=== PATIENT | male | born 1970 | race Caucasian/White ===

== ENCOUNTER 2019-07-29 21:09 | Emergency (ER) | payer OTHER, SELFPAY ==
[2019-07-29 21:15] VITALS: BP 149/94; PULSE 70; RESP 18; TEMP 36.6; O2SAT 96; BMI 29.2
--- NOTE | 2019-07-29 21:43 | PC.NURSE ---
pt agreeable to changing into disposable clothes. and daughter at bedside.
[2019-07-29 22:00] LABS: Add Manual Diff / Slide Review NO; Basophils Absolute Auto 0 /uL (0-100); Basophils Percent Auto 0.5 % (0-2); Eosinophils Absolute Auto 200 /uL (0-450); Eosinophils Percent Auto 2.8 % (2-4); Hematocrit 48.9 % (41-53); Hemoglobin 16.8 g/dL (13.5-17.5); Lymphocytes Absolute Auto 3500 /uL (1100-4500); Lymphocytes Percent Auto 44.5 % (25-40); Mean Corpuscular HGB Conc 34.4 % (30-36); Mean Corpuscular Hemoglobin 31.9 PG (26-34); Mean Corpuscular Volume 92.8 fL (80-100); Monocytes Absolute Auto 400 /uL (0-900); Monocytes Percent Auto 4.8 % (3-14); Neutrophils Absolute Auto 3700 /uL (1500-7000); Neutrophils Percent Auto 47.4 % (50-75); Platelet Count 320 X10^3/uL (150-400); Red Blood Cell Count 5.27 X10^6/uL (4.5-5.9); Red Cell Distribution Width 13.1 % (11.6-14.8); White Blood Cell Count 7.8 X10^3/uL (4.5-11.0)
[2019-07-29 22:10] LABS: Acetaminophen < 10 ug/mL (10-30); Alanine Aminotransferase 34 IU/L (21-72); Albumin 4.7 g/dL (3.5-5.0); Albumin Globulin Ratio 1.3 (1.0-2.8); Alkaline Phosphatase 86 U/L (38-126); Aspartate Aminotransferase 44 IU/L (17-59); Bilirubin Total 0.4 mg/dL (0.2-1.3); Blood Urea Nitrogen 13 mg/dL (9-20); Carbon Dioxide 27 mmol/L (22-32); Chloride 107 mmol/L (98-107); Estimated Glomerular Filt Rate > 60.0 mL/min (>60); Ethanol (ETOH) 253 mg/dL; Globulin 3.5 g/dL (1.7-4.1); Glucose 121 mg/dL (70-100); HEMOLYSIS < 15 (0-50); Lipase 343 U/L (23-300); Potassium 4.5 mmol/L (3.4-5.1); Salicylate < 1.0 mg/dL (<20); Sodium 146 mmol/L (137-145); Total Protein 8.2 g/dL (6.3-8.2)
--- NOTE | 2019-07-29 22:11 | PC.NURSE ---
dr manrique at bedside
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
[2019-07-29 22:21] LABS: Troponin I < 0.012 ng/mL (0.01-0.034)
[2019-07-29 22:22] LABS: Urine Amphetamines Negative (Negative); Urine Barbiturates Negative (Negative); Urine Benzodiazepines Negative (Negative); Urine Cocaine Negative (Negative); Urine MDMA Negative (Negative); Urine Methadone Negative (Negative); Urine Methamphetamines Negative (Negative); Urine Morphine/Opi cutoff 2000 Negative (Negative); Urine Oxycodone Negative (Negative); Urine Phencyclidine Negative (Negative); Urine Tetrahydrocannabinol Negative (Negative); Urine Tricyclic Antidepressant Negative (Negative)
[2019-07-29] MEDS: TRAZODONE 50 MG TABLET PO (22:44)
--- NOTE | 2019-07-29 23:01 | PC.NURSE ---
Pt is lying down. Two family members are in room. Lights are off.
--- NOTE | 2019-07-29 23:30 | PC.NURSE ---
Pt is quietly talking to . Remains calm in bed.
--- NOTE | 2019-07-29 23:47 | PC.NURSE ---
Pt stated that he wanted to check out and go home; stated that he wanted and daughter to not have to stay all night. Requested breathing treatment and used urinal. Declined warm blanket. Alert and oriented to room.
--- NOTE | 2019-07-30 00:02 | PC.NURSE ---
Pt in bed resting, resting and calm. in room, lights off.
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
--- NOTE | 2019-07-30 00:31 | PC.NURSE ---
Calm, talking to .
--- NOTE | 2019-07-30 00:47 | PC.NURSE ---
Pt wants to go home. Calmed down and lying down on back. continues to be at side. Light still off.
--- NOTE | 2019-07-30 01:46 | PC.NURSE ---
Pt is calm in bed. left to get food for him.
--- NOTE | 2019-07-30 02:02 | PC.NURSE ---
Pt still asleep.
[2019-07-30 02:13] VITALS: BP 126/81; PULSE 63; RESP 14; O2SAT 95
--- NOTE | 2019-07-30 02:16 | PC.NURSE ---
Patient's brought food in and he woke up. Did not request to go home. Asked for water and returned to lying down. in room. Lights off.
--- NOTE | 2019-07-30 02:56 | PC.NURSE ---
Pt is sleeping.
--- NOTE | 2019-07-30 03:17 | PC.NURSE ---
Pt is sleeping.
--- NOTE | 2019-07-30 04:20 | PC.NURSE ---
Patient sleeping. in room.
--- NOTE | 2019-07-30 04:30 | PC.NURSE ---
Pt asleep, some shifting observed. in room.
[2019-07-30 05:15] VITALS: BP 117/75; PULSE 89; RESP 12; O2SAT 94
[2019-07-30 05:32] LABS: Ethanol (ETOH) 97 mg/dL
[2019-07-30] MEDS: ONDANSETRON 4 MG ODT SL (05:59)
--- NOTE | 2019-07-30 06:13 | PC.NURSE ---
Pt complained of nausea. Stated that he was sure it was from all the alcohol.
--- NOTE | 2019-07-30 06:17 | PC.NURSE ---
Pt is calm and lying down. Declined more water or blanket. Awake and resting. in room.
--- NOTE | 2019-07-30 06:47 | PC.NURSE ---
Pt requested to vomit in the bathroom. Escorted to bathroom with water. He vomited and felt better.
--- NOTE | 2019-07-30 06:53 | PC.NURSE ---
He denies any suicidal or homicidal thoughts now.He will go home with his and all firearms will be removed from his home.He is alert and oriented to place,person and situation.
== END 2019-07-30 06:50 | disposition home or self-care (01) ==
PROVIDERS: Emergency Provider Emergency Medicine
DX: R45.851 Suicidal ideations (principal); F43.10 Post-traumatic stress disorder, unspecified; F10.929 Alcohol use, unspecified with intoxication, unspecified
CPT/HCPCS: 36415; 80053; 80305; 80320; 80329; 83690; 84484; 85025; 93005; 99284; 99285; G0480

== ENCOUNTER 2020-04-14 09:16 | Emergency (ER) | payer OTHER, SELFPAY ==
[2020-04-14 09:20] VITALS: BP 137/84; PULSE 94; RESP 20; TEMP 36.6; O2SAT 95; BMI 27.8
--- NOTE | 2020-04-14 09:40 | DI.RAD.S_ITS ---
PROCEDURE: XR CHEST 1V INDICATIONS: SOB TECHNIQUE: One view of the chest was acquired. COMPARISON: None. FINDINGS: Surgical changes and devices: None. Lungs and pleura: Lungs are clear. No pleural effusions or pneumothorax. Mediastinum: Mediastinal contours appear normal. Heart size is normal. Bones and chest wall: No suspicious bony lesions. Overlying soft tissues appear unremarkable. IMPRESSION: No evidence acute pulmonary process. Dictated by: Michael Goff M.D. on 04/14/2020 at 9:23 Approved by: Michael Goff M.D. on 04/14/2020 at 9:24
[2020-04-14] MEDS: ALBUTEROL HFA 60 PUFF/8 GM INH INH (09:53)
[2020-04-14] MEDS: predniSONE 20 MG TABLET 40 MG PO (09:57)
[2020-04-14 10:30] VITALS: PULSE 68; RESP 20; O2SAT 96
[2020-04-14 11:19] VITALS: BP 131/74; PULSE 72; O2SAT 97
[2020-04-14 12:01] LABS: COVID19 -Nasal RAPID Negative (Negative)
--- NOTE | 2020-04-14 14:35 | ED_ITS ---
HPI - URI/Sore Throat General Chief Complaint: Upper Respiratory Symptoms Stated Complaint: cough/ lower resp gavino/ nauseu headache weakness Time Seen by Provider: 04/14/20 09:18 Source: patient Mode of arrival: Ambulatory Limitations: no limitations History of Present Illness HPI Narrative: 50-year-old male nonsmoker with history of lower respiratory illness presents with the chief complaint of trouble with breathing including wheezing, runny nose, nasal congestion for the past few days. He denies fever or chills. He denies any cough productive of sputum. He denies any nausea, vomiting or diarrhea. He denies chest pain or abdominal pain. He denies any dysuria, frequency or urgency. He does not have a rescue inhaler at home but has been using his Advair without much in the way of success. He does have history of seasonal allergies and questions whether something might be going to rocha Complaint: rhinorrhea and nasal congestion Onset (ago): day(s) Duration: constant Severity: moderate Relieving factors: nothing Exacerbating factors: nothing Description of mucous: clear Able to tolerate fluids by mouth: Yes Associated symptoms: shortness of breath Treatments prior to arrival: none Related Data Home Medications Medication Instructions Recorded Confirmed escitalopram oxalate 10 mg PO DAILY 07/29/19 07/29/19 fluticasone propion-salmeterol 1 inh INHALATION BID 07/29/19 07/29/19 [Advair Diskus] montelukast 10 mg PO QPM 07/29/19 07/29/19 Previous Rx's Medication Instructions Recorded lorazepam [Ativan] 1 mg PO QD-BID PRN #10 tab 07/30/19 ondansetron 4 mg PO Q6H PRN #14 tab 07/30/19 prednisone See Rx Instructions .ROUTE 04/14/20 .COMPLEX #30 tab Allergies Allergy/AdvReac Type Severity Reaction Status Date / Time No Known Drug Allergies Allergy Verified 04/14/20 09:33 Review of Systems Constitutional Constitutional: Denies chills, Denies fatigue, Denies fever(s), Denies frequent falls, Denies lethargy and Denies weakness Eyes Eyes: Denies change in vision, Denies eye discharge, Denies irritation and Denies loss of vision ENT Ears, Nose, Mouth, and Throat: Denies change in voice, Denies dizziness, Reports nasal congestion, Reports nasal discharge, Denies neck pain, Denies sore throat and Denies throat swelling Cardiovascular Cardiovascular: Denies chest pain, Denies irregular heart rhythm, Denies lightheadedness, Denies palpitations, Reports dyspnea, Denies dyspnea on exertion and Denies orthopnea Respiratory Respiratory: Denies cough, Reports dyspnea, Denies dyspnea on exertion and Reports wheezing Gastrointestinal Gastrointestinal: Denies abdominal pain, Denies change in bowel habits, Denies diarrhea, Denies nausea and Denies vomiting Genitourinary Genitourinary: Denies hematuria, Denies flank pain, Denies urinary incontinence and Denies urinary urgency Musculoskeletal Musculoskeletal: Denies back pain, Denies muscle weakness, Denies neck pain, Denies numbness and Denies tingling Integumentary/Breasts Skin/Breast: Denies pruritus, Denies erythema, Denies rash and Denies wounds Neurologic Neurologic: Denies behavioral changes, Denies confusion, Denies dizziness, Denies frequent falls, Denies loss of vision, Denies numbness, Denies tingling and Denies weakness Psychiatric Psychiatric: Denies anxiety, Denies behavioral changes, Denies confusion, Denies depression, Denies homicidal ideation and Denies suicidal ideation Endocrine Endocrine: Denies fatigue, Denies flushing and Denies palpitations Hematologic/Lymphatic Hematologic/Lymphatic: Denies easy bruising Allergic/Immunologic Allergic/Immunologic: Denies urticaria, Denies throat swelling and Reports wheezing Patient History Medical History Alcohol abuse (Acute) Depression (Acute) Insomnia (Acute) PTSD (post-traumatic stress disorder) (Acute) Surgical History No pertinent past surgical history (Acute) Social History Smoking Status: Never smoker Smoking Status: Never smoker alcohol intake frequency: 3 or more drinks per day Substance Use Type: does not use Exam Narrative Exam Narrative: GENERAL: [50] year old patient appears stated age. Well- nourished, well-developed patient, in mild distress. HEAD: Atraumatic. Normocephalic. EYES: Pupils equal round and reactive. Extraocular motions intact. No scleral icterus. No injection or drainage. ENT: Clear drainage. Nose without bleeding, purulent drainage. Throat without erythema, tonsillar hypertrophy or exudate, though there is some clear postnasal drip. Airway patent. NECK: Trachea midline. Non tender CARDIOVASCULAR: Regular rate and rhythm without murmurs, gallops, or rubs. RESPIRATORY: Moderate wheeze with inspiratory and expiratory involvement. No crackles. GASTROINTESTINAL: Abdomen soft, non-tender, nondistended. EXTREMITIES: No edema or joint tenderness. BACK: Nontender without deformity or crepitance. No flank tenderness. NEURO: AOx3. SKIN: No rash or erythema of visible areas Initial Vital Signs Initial Vital Signs: Vital Signs Temperature 97.9 F 04/14/20 09:20 Pulse Rate 94 H 04/14/20 09:20 Respiratory Rate 20 04/14/20 09:20 Blood Pressure 137/84 04/14/20 09:20 Pulse Oximetry 95 04/14/20 09:20 Course Course Course Narrative: patient shows definite improvement after above stated therap ies Orders Ordered: ED Orders 04/14/20 09:40 XR chest 1V Stat Discontinued Medications Albuterol (Ventolin Hfa) 2 puff INH NOW ONE Stop: 04/14/20 09:41 Last Admin: 04/14/20 09:53 Dose: 2 puff Documented by: BFOX Prednisone (Deltasone) 40 mg PO NOW ONE Stop: 04/14/20 09:41 Last Admin: 04/14/20 09:57 Dose: 40 mg Documented by: KBROTEM Vital Signs Vital signs: Vital Signs - 8 hr 04/14/20 09:20 04/14/20 10:30 04/14/20 11:19 Temperature 97.9 F Pulse Rate 94 H 68 72 Respiratory Rate 20 20 Blood Pressure 137/84 131/74 Pulse Oximetry 95 96 97 MDM - URI/Sore Throat Lab Data Labs: Lab Results 04/14/20 04/14/20 Range/Units 10:02 10:37 COVID-19 PCR Cancelled Negative Imaging Data Chest x-ray: Radiologist's Impression: Adam Koehler M 1970 [address] [address] XRay Report Signed Patient: Adam Koehler JMR#: [id number] : 1970Acct:[id number] Age/Sex: 50 / MDate of Service: 04/14/20 Loc: ED Accession Number: [id number] Procedure: XR chest 1V Ordering Provider: Jaspreet Bolaños D.O. PROCEDURE: XR CHEST 1V INDICATIONS: SOB TECHNIQUE: One view of the chest was acquired. COMPARISON: None. FINDINGS: Surgical changes and devices: None. Lungs and pleura: Lungs are clear. No pleural effusions or pneumothorax. Mediastinum: Mediastinal contours appear normal. Heart size is normal. Bones and chest wall: No suspicious bony lesions. Overlying soft tissues appear unremarkable. IMPRESSION: No evidence acute pulmonary process. Dictated by: Michael Goff M.D. on 04/14/2020 at 9:23 Discharge Plan Departure Patient Disposition: Home Clinical Impression: Allergy to environmental factors Asthma exacerbation Qualifiers: Asthma severity: moderate Asthma persistence: persistent Qualified Code(s): J45.41 - Moderate persistent asthma with (acute) exacerbation Discharge Date/Time: 04/14/20 11:20 Instructions: Asthma -- Adult Activity Restrictions/Additional Instructions: *You have been diagnosed with [asthma exacerbation, with environmental allergies] *What to do: *Take medications as directed *Follow up with your primary care provider in 2-3 days, call for an appointment. Let them know you were seen in the Emergency Department and that we ask that you be seen in follow up *Return to ER if you should have any new, worsening or concerning symptoms Prescriptions: New prednisone 10 mg tablet See Rx Instructions .ROUTE .COMPLEX Qty: 30 RF: 0 No Action escitalopram oxalate 10 mg Tablet 10 mg PO DAILY RF: 0 montelukast 10 mg Tablet 10 mg PO QPM RF: 0 fluticasone propion-salmeterol [Advair Diskus] 250-50 mcg/dose blister with device 1 inh INHALATION BID RF: 0 ondansetron 4 mg tablet,disintegrating 4 mg PO Q6H PRN (Reason: nausea and vomiting) Qty: 14 RF: 0 lorazepam [Ativan] 1 mg tablet 1 mg PO QD-BID PRN (Reason: alcohol withdrawal) Qty: 10 RF: 0 Referrals: Jessa Severino DO [Primary Care Provider] -
== END 2020-04-14 11:20 | disposition home or self-care (01) ==
PROVIDERS: Emergency Provider Emergency Medicine; PCP Family Medicine
DX: J45.41 Moderate persistent asthma with (acute) exacerbation (principal); J30.2 Other seasonal allergic rhinitis; R06.02 Shortness of breath; R05 Cough
CPT/HCPCS: 71045; 87635; 94150; 94640; 99283; 99284

== ENCOUNTER → 2020-08-10 08:20 | Outpatient (CLI) | payer OTHER, SELFPAY ==
[2020-08-12 18:27] LABS: COVID19 Sendout Not Detected (Not Detect)
== END ==
PROVIDERS: PCP Family Medicine; Visit Provider Nurse Practitioner
DX: Z11.59 Encounter for screening for other viral diseases (principal)
CPT/HCPCS: 87635

== ENCOUNTER 2020-08-13 08:08 | Day surgery (SDC) | payer OTHER, SELFPAY ==
--- NOTE | 2020-08-13 | PATH_ITS ---
[facility] Accession Number: [id number] . 01 Material submitted: . PART A: sigmoid colon - SIGMOID POLYP PART B: rectum - RECTAL POLYP . 02 Diagnosis: A. Sigmoid Colon, Polyp: Benign perineurioma. Negative for dysplasia or malignancy. . B. Rectum, Polyp: Hyperplastic polyp. [facility] 08/15/2020 1005 Local . 02 Electronically signed: . Miguel Villalobos MD, PhD, Pathologist NPI- [id number] . 01 Gross description: . A. Specimen A is received in formalin, labeled sigmoid polyp and consists of a 0.2 x 0.2 x 0.2 cm ambrocio fragment of soft tissue, which is entirely submitted in cassette A1. B. Specimen B is received in formalin, labeled rectal polyp and consists of four ambrocio fragments of soft tissue, measuring 0.6 x 0.5 x 0.2 cm in aggregate. The specimen is entirely submitted in cassette B1. ([id number]) /[facility] 08/14/2020 1717 Local . 02 Pathologist provided ICD-10: D12.5, K62.1 . 02 CPT . 464170, 634244 Performed at: 01 [facility] [address], [place], [place] [id number] MD Elvis Ochoa MD Phone: [phone] Performed at: 02 [facility] [address] [place], [place] [id number] MD Heydi Anderson MD Phone: [phone]
[2020-08-13 08:26] VITALS: BP 134/88; PULSE 87; RESP 14; TEMP 36.3; O2SAT 95; BMI 28.5
[2020-08-13] MEDS: LACTATED RINGERS 1,000 ML 200 ML IV (08:32)
--- NOTE | 2020-08-13 09:14 | PM.OP.ENDO ---
Operative Date/Time/Diagnoses Date of procedure: 08/13/20 Time of procedure: 09:14 Pre-op diagnosis: Screening colonoscopy Post-op diagnosis: same Procedure & Clinicians Study performed: Colonoscopy Same procedure as scheduled: Yes Indications: 50-year-old male no prior colonoscopy presents for routine screening Surgeon: Javad Maza Procedure Notes SCOAP/Timeout: Performed Procedure in detail: Patient placed in left lateral recumbent position. Time out was performed. Procedural sedation was administered with Versed and Fentanyl. Examination began with a thorough inspection of the perianal area there was no evidence of fissures, fistulae, external hemorrhoids or cutaneous malignancy. The colonoscopy scope was then placed into the rectum the the lumen was insufflated with air. The scope was carefully advanced forward. Ultimately the cecum was intubated and confirmed by identification of the ileocecal valve, the appendiceal orifice and the confluence of the taenia. The scope was then slowly withdrawn examining colon thoroughly in all directions. In the rectum the rectal columns were identified and retroflexion of the scope was performed for inspection of the distal rectum and anal canal. The colonoscopy was notable for the followin. Quality of the preparation-good 2. Less than 1 cm polyp the sigmoid colon removed with biopsy forceps and hemostasis observed 3. Less than 1 cm polyp in the mid rectum removed with biopsy forceps hemostasis observed 4. Sigmoid diverticulosis Scope withdrawal time: 9 Sedation minutes: 27 Findings: polyp Specimen(s): other (Rectal polyp, sigmoid polyp) Complications: none Impression: Diverticulosis, benign polyps Post-procedure Recommendations: Colonscopy in 5 years Disposition: same day surgery
--- NOTE | 2020-08-13 09:14 | PM.HP.1 ---
History of Present Illness History of Present Illness Date Patient Seen: 08/13/20 Time Patient Seen: 09:15 Chief complaint: SDC Narrative: The patient presents for colorectal sreening. They have never had any previous examination for such. No personal or family history of colon cancer. On further history denies any recent gastrointestinal symptoms. No nausea, vomiting, abdominal pain, loss of appetite, unexplained weight loss, change in bowel habits, diarrhea, constipation, melena, hematochezia, or bright red blood per rectum. Patient History Medical History Alcohol abuse (Acute) Depression (Acute) Insomnia (Acute) PTSD (post-traumatic stress disorder) (Acute) Surgical History No pertinent past surgical history (Acute) Family & Social History Social History: household members spouse Tobacco & Substance use: Smoking Status Never smoker alcohol intake frequency a few times a week Substance Use Type does not use Meds Home Medications and Allergies Home Medications Medication Instructions Recorded Confirmed Type escitalopram oxalate 10 mg PO DAILY 07/29/19 08/13/20 History fluticasone propion-salmeterol 1 inh INHALATION BID 07/29/19 08/13/20 History [Advair Diskus] montelukast 10 mg PO QPM 07/29/19 08/13/20 History albuterol sulfate See Rx Instructions .ROUTE .COMPLEX 08/13/20 08/13/20 History Allergies Allergy/AdvReac Type Severity Reaction Status Date / Time No Known Drug Allergies Allergy Verified 08/13/20 08:22 Review of Systems Review of Systems Narrative: A 10 point review of systems is negative except as noted in the HPI Exam Vital Signs (past 8 hours): - 08/13/20 08:26 Temperature 97.4 F L Pulse Rate 87 Respiratory Rate 14 Blood Pressure 134/88 Pulse Oximetry 95 Oxygen Delivery Method Room Air Narrative Exam Narrative: General-no acute distress, well nourished adult male HEENT-moist mucous membranes, no scleral icterus Neck-supple, no lymphadenopathy Chest- non labored respirations, clear to auscultation bilaterally Cardiac-regular rate no peripheral edema Abdomen-soft, nontender, non distended Extremities-warm, well perfused Neurological-alert and oriented, no focal deficits Assessment & Plan Assessment & Plan narrative: The patient requires colorectal screening and colonoscopy is recommended. Technical details were discussed. Risks, benefits, alternatives explained. Risks including but not limited to myocardial infarction, aspiration, bleeding, pain, missed lesion, incomplete examination, need for further radiographic studies, colonic perforation, and need for major abdominal surgery were discussed. All questions were answered to their satisfaction, and they are in agreement with this plan.
[2020-08-13] MEDS: fentaNYL 250 MCG/5 ML INJ IV (09:37)
[2020-08-13] MEDS: MIDAZOLAM 5 MG/5 ML VIAL IV (09:37)
[2020-08-13 09:59] VITALS: BP 133/85; PULSE 73; RESP 12; TEMP 36.7; O2SAT 97
[2020-08-13 10:04] VITALS: BP 114/71; PULSE 80; RESP 12; O2SAT 96
[2020-08-13 10:09] VITALS: BP 119/70; PULSE 81; RESP 12; O2SAT 95
[2020-08-13 10:17] VITALS: BP 122/76; PULSE 78; RESP 12; TEMP 36.5; O2SAT 95
[2020-08-13 10:23] VITALS: BP 111/71; PULSE 82; RESP 15; TEMP 36.2; O2SAT 96
== END 2020-08-13 10:36 | disposition home or self-care (01) ==
PROVIDERS: PCP Family Medicine; Referring Provider Family Medicine; Visit Provider Surgery
PROC: 0DJD8ZZ Inspection of Lower Intestinal Tract, Via Natural or Artificial Opening Endoscopic (ICD-10-PCS; CPT 45378; principal; 2020-08-13 09:15)
DX: Z12.11 Encounter for screening for malignant neoplasm of colon (principal); K57.30 Diverticulosis of large intestine without perforation or abscess without bleeding; D12.5 Benign neoplasm of sigmoid colon; K62.1 Rectal polyp
CPT/HCPCS: 45380; 99152; 99153; J2250; J3010

== ENCOUNTER → 2022-05-09 10:56 | Outpatient (CLI) | payer OTHER, SELFPAY ==
[2022-05-09 11:45] LABS: COVID19 -Nasal RAPID Negative (Negative)
== END ==
PROVIDERS: PCP Family Medicine; Visit Provider Surgery
DX: Z20.822 Contact with and (suspected) exposure to COVID-19 (principal); Z01.812 Encounter for preprocedural laboratory examination
CPT/HCPCS: 87635; C9803

== ENCOUNTER 2022-05-12 13:25 | Day surgery (SDC) | payer OTHER, SELFPAY ==
--- NOTE | 2022-05-12 | PATH_ITS ---
[facility] Accession Number: [id number] . 01 Material submitted: . PART A: duodenum - DUODNEUM PART B: stomach - ANTRUM PART C: gastrointestinal site - GASTRIC POLYP PART D: esophagus - ESOPHAGEAL . 01 Diagnosis: A. Duodenum, Biopsy: Duodenal mucosa with no diagnostic abnormality. Negative for active inflammation, features of sprue, dysplasia, or malignancy. . B. Stomach, Antrum, Biopsy: Antral mucosa with mild chronic gastritis. Negative for Helicobacter by immunohistochemistry. Negative for intestinal metaplasia. Negative for dysplasia and malignancy. . C. Stomach, Polyp, Biopsy: Gastric hyperplastic polyp. No evidence of Helicobacter on H/E stain. Negative for intestinal metaplasia. Negative for dysplasia and malignancy. . D. Esophagus, Biopsy: Squamous epithelium with no diagnostic abnormality. Intraepithelial eosinophils are not increased. Negative for dysplasia and malignancy. [facility] 05/15/2022 1522 Local . 01 Electronically signed: . Heydi Anderson MD, Pathologist NPI- [id number] . 01 Gross description: . Part A: DUODNEUM: Received in formalin are 3 fragment(s) of ambrocio, soft tissue measuring 0.1 x 0.1 x 0.1 cm to 0.2 x 0.2 x 0.2 cm submitted entirely in 1 cassette(s) Part B: ANTRUM: Received in formalin are 2 fragment(s) of ambrocio, soft tissue measuring 0.1 x 0.1 x 0.1 cm to 0.2 x 0.2 x 0.2 cm submitted entirely in 1 cassette(s) Part C: GASTRIC POLYP: Received in formalin is 1 fragment(s) of ambrocio, soft tissue measuring 0.3 x 0.3 x 0.3 cm submitted entirely in 1 cassette(s) Part D: ESOPHAGEAL: Received in formalin is 1 fragment(s) of ambrocio, soft tissue measuring 0.2 x 0.2 x 0.1 cm submitted entirely in 1 cassette(s) /[facility] 05/13/2022 1908 Local . 01 Microscopic: . B. An immunohistochemical stain was performed to evaluate for Helicobacter organisms and is negative. The control stain showed appropriate reactivity. . * This test was developed and its performance characteristics determined by [facility]. It has not been cleared or approved by the U.S. Food and Drug Administration. The FDA has determined that such clearance or approval is not necessary. This test is used for clinical purposes. It should not be regarded as investigational or for research. . 01 Pathologist provided ICD-10: R11.0 . 01 CPT . 263136, 342511, 210034, 391854, Q20480 Specimen Comment: A courtesy copy of this report has been sent to [phone] Performed at: 01 [facility] [address] [place] [address] [address] [facility], [place], [place] [id number] MD Elvis Ochoa MD Phone: [phone]
[2022-05-12 13:50] VITALS: BP 130/79; PULSE 78; RESP 16; TEMP 36.3; O2SAT 97; BMI 27.8
[2022-05-12] MEDS: SODIUM CHLORIDE 0.9% 1,000 ML 100 ML IV (14:08)
--- NOTE | 2022-05-12 14:09 | SUR.PREOP ---
LR not given, this MD orders NS.
--- NOTE | 2022-05-12 15:02 | PM.HP.1 ---
History of Present Illness History of Present Illness Date Patient Seen: 05/12/22 Time Patient Seen: 15:02 Chief complaint: SDC Narrative: Early satiety. I reviewed my recent office note from January of this year. No significant changes. Patient History Medical History Alcohol abuse Depression Insomnia PTSD (post-traumatic stress disorder) Surgical History No pertinent past surgical history Family & Social History Social History: household members spouse Tobacco & Substance use: Smoking Status Never smoker alcohol intake current alcohol intake frequency a few times a week Substance Use Type does not use Meds Home Medications and Allergies Home Medications Medication Instructions Recorded Confirmed Type escitalopram oxalate 10 mg tablet 10 mg PO DAILY 07/29/19 08/13/20 History fluticasone 250 mcg-salmeterol 50 1 inh inhalation BID 07/29/19 08/13/20 History mcg/dose blistr powdr for inhalation (Advair Diskus) montelukast 10 mg tablet 10 mg PO QPM 07/29/19 08/13/20 History albuterol sulfate 90 mcg/actuation See Rx Instructions .Route .COMPLEX 08/13/20 08/13/20 History breath activated powder inhaler Vitamin D3 05/12/22 History vitamin B complex 05/12/22 History Allergies Allergy/AdvReac Type Severity Reaction Status Date / Time No Known Drug Allergies Allergy Verified 05/12/22 13:46 Review of Systems Review of Systems ROS: Yes All systems reviewed with the patient and are negative except as otherwise documented Exam Vital Signs (past 8 hours): - 05/12/22 13:50 Temperature 97.4 F L Pulse Rate 78 Respiratory Rate 16 Blood Pressure 130/79 Pulse Oximetry 97 Oxygen Delivery Method Room Air Oxygen Delivery Method Room Air Const General: cooperative HENMT Head: normal to inspection Eyes General: appearance normal, both eyes and all related structures Neck Neck: normal visual inspection Chest Chest: normal inspection of the chest Resp Effort & Inspection: normal respiratory effort Cardio Rate: regular rate GI Inspection: normal to inspection Skin General: no rashes or lesions noted Neuro General: patient alert and patient awake Extrem General: normal to inspection and no pedal edema Psych Appearance: grossly normal Assessment & Plan Assessment & Plan narrative: 52-year-old male with early satiety x1 plus year. EGD is pursued today. Time Spent With Patient Critical Care time: I spent a total of [] minutes of critical care time on this patient's care today; this time is exclusive of procedural time.
--- NOTE | 2022-05-12 15:03 | PM.PREOP ---
Pre-operative Note COVID-19 COVID-19 status: Negative Result date/Date tested (Pos, Neg/Pending): 05/09/22 Criteria for continued procedure: Possibility delay results in more complex future surgery or treatment Interval Note History & Physical reviewed/Exam performed by Physician: Yes Changes to H&P: No ASA Class (for procedural sedation): II
--- NOTE | 2022-05-12 16:11 | PM.OP.EGD ---
Operative Date/Time/Diagnoses Date of procedure: 05/12/22 Time of procedure: 16:11 Pre-op diagnosis: Early satiety Post-op diagnosis: same Procedure & Clinicians Study performed: EGD with biopsies Same procedure as scheduled: Yes Indications: Early satiety Surgeon: Beto Miller Procedure Notes SCOAP/Timeout: Done Procedure in detail: After the risks and benefits were explained, written and verbal informed consent was obtained. The patient was brought into the procedure room and placed into the left lateral decubitus position. Please see nurse deputy general counsel notes for sedation details. The scope was introduced into the mouth through the bite block and advanced under direct visualization to the 2nd portion of the duodenum. The scope was slowly withdrawn carefully examining the mucosa for any defects or lesions. Retroflexed views were accomplished in the stomach. The stomach was decompressed, the scope was then removed from the patient who tolerated the procedure well. Sedation minutes: 10 Complications: none Impression: 1. Duodenum: This appeared to have some subtle patchy erythema with mild subtle erosions. Biopsies were taken for histopathologic analysis. These features were identified in the 2nd portion of the duodenum. 2. Stomach: No outlet obstruction no ulcers no mass lesions. Mild gastropathy was appreciated and biopsies were taken from the antrum for exclusion of H pylori. Retroflexed views of the LES were unremarkable. A diminutive polyp in the gastric body was sampled with cold forceps. 3. Esophagus: The squamocolumnar junction correlated with the top of the gastric folds. GEJ was at 41 cm from the incisors. No acute erosive changes no strictures no mass lesions. However in the mid esophagus approximately 10 cm proximal to the GE junction was a subtle linear 2 cm erosion. This area was sampled for histology. At the level of the upper esophageal sphincter mechanism there were a few areas of salmon-colored mucosa consistent with inlet patches. Endoscopic diagnosis 1. Mild gastropathy 2. Erosive duodenopathy 3. Diminutive gastric polyp 4. Mid esophageal erosion Post-procedure Plan for aftercare: 1. Await histopathology. 2. If there are no findings to account for his ongoing symptoms of early satiety, further abdominal imaging will be indicated. Disposition: PACU
[2022-05-12 16:16] VITALS: BP 114/72; PULSE 84; RESP 16; TEMP 36.4; O2SAT 98
[2022-05-12 16:21] VITALS: BP 126/82; PULSE 79; RESP 16; O2SAT 96
[2022-05-12 16:26] VITALS: BP 130/77; PULSE 83; RESP 16; O2SAT 98
[2022-05-12 16:31] VITALS: BP 128/82; PULSE 65; RESP 17; O2SAT 99
[2022-05-12 16:38] VITALS: BP 130/70; PULSE 70; RESP 16; TEMP 36.9; O2SAT 98
== END 2022-05-12 16:59 | disposition home or self-care (01) ==
PROVIDERS: PCP Family Medicine; Referring Provider Internal Medicine Gastroenterology; Visit Provider Internal Medicine Gastroenterology
PROC: 0DJ08ZZ Inspection of Upper Intestinal Tract, Via Natural or Artificial Opening Endoscopic (ICD-10-PCS; CPT 43235; principal; 2022-05-12 15:00)
DX: R68.81 Early satiety (principal); K31.9 Disease of stomach and duodenum, unspecified; K26.9 Duodenal ulcer, unspecified as acute or chronic, without hemorrhage or perforation; K31.7 Polyp of stomach and duodenum; K22.10 Ulcer of esophagus without bleeding; K29.50 Unspecified chronic gastritis without bleeding
CPT/HCPCS: 43239; J2250; J2704

== ENCOUNTER → 2024-04-13 08:33 | Outpatient (CLI) | payer OTHER, SELFPAY | LOC: RESP 08:34 | PROVIDERS: PCP Family Medicine; Referring Provider Family Medicine; Visit Provider Family Medicine | DX: J44.9 Chronic obstructive pulmonary disease, unspecified (principal); R05.3 Chronic cough; Z57.39 Occupational exposure to other air contaminants | CPT/HCPCS: 94060; 94726; 94729 ==